=== PATIENT | male | born 1995 | race Caucasian/White ===

== ENCOUNTER 2018-09-23 10:40 | Emergency (ER) | payer OTHER ==
[~2018-09-23] VITALS: Ht 180.3 cm; Wt 113.4 kg
[~2018-09-23 10:40] MED LIST: DOXYCYCLINE HY100 MG PO; NAPROXEN500 MG PO; TRAZODONE HCL50 MG PO
== END 2018-09-23 12:27 | disposition home or self-care (01) ==
LOC: ED 10:40
DX: N50.812 Left testicular pain (principal); N50.811 Right testicular pain; N50.82 Scrotal pain; F17.200 Nicotine dependence, unspecified, uncomplicated
CPT/HCPCS: 76870; 81001; 99284-25

== ENCOUNTER 2021-06-15 08:34 | Emergency (ER) | payer OTHER ==
[~2021-06-15] VITALS: Ht 180.3 cm; Wt 113.4 kg
== END 2021-06-15 10:07 | disposition home or self-care (01) ==
LOC: ED 08:34
DX: U07.1 COVID-19 (principal); J12.82 Pneumonia due to coronavirus disease 2019; Z87.891 Personal history of nicotine dependence
CPT/HCPCS: 71045; 99284-25